=== PATIENT | male | born 1955 | race Caucasian/White ===

== ENCOUNTER 2018-02-16 10:53 | Inpatient (IN) | payer OTHER ==
[~2018-02-16] VITALS: Ht 185.4 cm; Wt 111.3 kg
[2018-02-16 11:04] VITALS: BP 142/71
[2018-02-16] MEDS ORDERED: ASPIR 8181 MG PO (11:06)
[2018-02-16 11:40] LABS: HEMATOCRIT 44.3 % (42.0-52.0); HEMOGLOBIN 14.9 gm/dL (14.0-18.0); MCH 32.4 pg (26.0-34.0); MCHC 33.6 g/dL (28.0-37.0); MCV 96.2 fL (80.0-100.0); MPV 7.7 fl. (7.2-11.1); NUCLEATED RBCS 0 /100WBC; PLATELET COUNT* 329 thou/uL (150-400); RBC 4.61 mil/uL (4.50-6.00); RDW-CV 13.4 % (10.5-14.5); WBC 15.8 thou/uL (4.0-11.0)
[2018-02-16 11:47] LABS: INR 1.1; PROTIME 11.1 Seconds (9.20-11.50)
[2018-02-16 11:48] LABS: ANION GAP 10 mmol/L (7-16); BUN 19 mg/dL (7-18); CALCIUM 8.6 mg/dL (8.5-10.1); CHLORIDE 90 mmol/L (98-107); CO2 27 mmol/L (21-32); CREATININE 1.2 mg/dL (0.6-1.3); GLUCOSE 169 mg/dL (70-99); POTASSIUM 3.4 mmol/L (3.5-5.1); SODIUM 127 mmol/L (136-145)
[2018-02-16 11:58] LABS: ALBUMIN 2.4 g/dL (3.4-5.0); ALKALINE PHOSPHATASE 83 U/L (46-116); LIPASE 82 U/L (73-393); MAGNESIUM 2.4 mg/dL (1.8-2.4); NT-PRO BRAIN NAT PEPTIDE 1166 pg/mL (<300); SGOT 28 U/L (15-37); SGPT 20 U/L (30-65); TOTAL BILIRUBIN 1.3 mg/dL (<0.1-1.0); TOTAL PROTEIN 7.5 g/dL (6.4-8.2); TROPONIN-I LEVEL <0.06 ng/mL (<0.06)
[2018-02-16 12:17] LABS: ABSOLUTE LYMPHOCYTES 0.5 thou/uL (0.8-5.3); ABSOLUTE MONOCYTES 1.7 thou/uL (0.0-1.2); ABSOLUTE NEUTROPHILS 13.6 thou/uL (1.6-8.1); ANISOCYTOSIS 1+; PLATELET ESTIMATE ADEQUATE; POIKILOCYTOSIS 1+
[2018-02-16 12:48] LABS: ESR (SEDRATE) 90 mm/hr (0-20)
[2018-02-16 13:00] VITALS: BP 96/50
[2018-02-16 13:40] LABS: URINE BILIRUBIN NEGATIVE (Negative); URINE BLOOD TRACE (Negative); URINE CLARITY CLEAR; URINE COLOR YELLOW; URINE GLUCOSE-RANDOM NEGATIVE (Negative); URINE KETONES TRACE (Negative); URINE LEUKOCYTES-REFLEX NEGATIVE (Negative); URINE NITRITE-REFLEX NEGATIVE (Negative); URINE PROTEIN 1+ (Negative); URINE UROBILINOGEN 0.2 E.U./dl (0.2-1.0)
[2018-02-16 13:46] LABS: AMP/METHAMP Negative (Negative); BARBITURATES Negative (Negative); BENZODIAZEPINES Negative (Negative); COCAINE Negative (Negative); METHADONE Negative (Negative); OPIATES POSITIVE (Negative); PCP Negative (Negative); THC Negative (Negative)
[2018-02-16 14:30] VITALS: BP 132/92
[2018-02-16 16:00] VITALS: BP 121/72
--- NOTE | 2018-02-16 18:15 | EKG ---
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: Marsha VELAZQUEZ : 1955 Requested By: Woody Moore Order Number: [id number] MD: Shane Billy Measurements Intervals Heaters Rate: 119 P: [place]: QRS: -59 QRSD: 119 T: 72 QT: 330 QTc: 465 Interpretive Statements Atrial fibrillation Left anterior fascicular block Left ventricular hypertrophy Anterior infarct, acute (LAD) ST elevation, consider inferior injury No previous ECG available for comparison Electronically Signed On 02-16-2018 18:14:25 CDT by Shane Billy [email or web address] <ELECTRONICALLY SIGNED> By: Shane Billy MD, FACC 02/16/18 1814 1104 1104 Shane Billy MD, FACC /EPI
--- NOTE | 2018-02-16 19:01 | NUR ---
PATIENT RESTING IN BED. UP AD SHANI. VITAL SIGNS STABLE AND PATINET IN NOAPPARENT DISTRESS. A FIB AND ON CARDIZEM GTT. HOURLY ROUNDING COMPLETED FOR PATIENT SAFETY.
[2018-02-16 20:00] VITALS: BP 124/73
[2018-02-17] VITALS: BP 130/74
[2018-02-17 04:00] VITALS: BP 128/66
--- NOTE | 2018-02-17 06:10 | NUR ---
ASSUMED PATIENT CARE AT 1900. PATIENT ALERT AND ORIENTED TIMES FOUR. COMPLAINTS OF SOME SHORTNESS OF AIR. LOTS OF EDUCATION COMPLETED. CARDIZEM DRIP INFUSING AT A RATE OF 15U/HR. REMAINS IN AFIB AT THIS TIME. ALERT AND ORIENTED TIMES FOUR. GRAM POSITIVE COCCI REPORTED IN THE BLOOD CULTURES. REPORTED TO MD AND NEW ORDERS RECEIVED. NEW IV ALSO STARTED AT THIS TIME. PATIENT USES URINAL AT THIS TIME HE FEELS WEAK WHEN STANDING. 2 IV'S PATENT. INSPECTOR PACKER AND HOURLY ROUNDING COMPLETED CHARTED
[2018-02-17 07:30] VITALS: BP 128/65
[2018-02-17 12:00] VITALS: BP 126/70
[2018-02-17 12:54] LABS: URIC ACID* 2.9 mg/dL (2.6-7.2)
[2018-02-17 14:00] VITALS: BP 119/64
--- NOTE | 2018-02-17 14:05 | NUR ---
I HAVE REVIEWED THE REASSESSMENT AND DOCUMENTATION BY STUDENT NURSE CARMEN RAMAN AND AGREE
--- NOTE | 2018-02-17 16:01 | NUR ---
MET WITH PT TO DISCUSS HOME SITUATION/DC PLANNING. 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 USES NO EQUIPMENT. TALKED ABOUT POC. PT HOPES TO GET MEDS TO CONTROL HIS AFIB AND GET BACK TO WORK. WILL FOLLOW
--- NOTE | 2018-02-17 17:33 | NUR ---
PATIENT UP ON SIDE OF BED EATING CO PAIN IN BACK AND CONSTIPATION WITH PAINKILLERS. WILL FOLLOW UP.
--- NOTE | 2018-02-17 17:58 | 2DMMODE ---
[place] [address] 2 D/M-MODE ECHOCARDIOGRAM Name: DEVON CALDERA Room: [address] IN [facility]#: [id number] Admission: 02/16/18 Attend Phys: Chico Lauren Discharge: Date of : 53 Date of Service: 02/17/18 1757 Report #: [id number] THIS REPORT FOR: //name// APPROVED REPORT Study performed: 02/17/2018 11:01:11 EXAM: Comprehensive 2D, Doppler, and color-flow Echocardiogram Patient Location: In-Patient Room #: [facility] Status: routine BSA: 2.37 HR: 93 bpm BP: 128/65 mmHg Rhythm: NSR Other Information Study Quality: Good Indications Atrial Fibrillation 2D Dimensions IVSd: 9.53 (7-11mm) LVOT Diam: 23.96 (18-24mm) LVDd: 63.03 mm PWd: 9.87 (7-11mm) Ascending Ao: 38.81 (22-36mm) LVDs: 39.48 (25-40mm) Aortic Root: 39.05 mm Volumes Left Atrial Volume (Systole) LA ESV Index: 47.60 mL/m2 Aortic Valve AoV Peak Paolo.: 1.52 m/s AO Peak Gr.: 9.29 mmHg LVOT Max P.82 mmHg AO Mean Gr.: 5.49 mmHg LVOT Mean P.23 mmHg LVOT Max V: 0.98 m/s AO V2 VTI: 23.35 cm LVOT Mean V: 0.70 m/s ABE (VTI): 2.90 cm2 LVOT V1 VTI: 15.03 cm Mitral Valve MV Decel. Time: 147.96 ms MV PHT: 42.91 ms MVA (PHT): 5.13 [place]2 [place] [address] 2 D/M-MODE ECHOCARDIOGRAM Name: DEVON CALDERA Room: [address] IN [facility].#: [id number] Admission: 02/16/18 Attend Phys: Chico Lauren Discharge: Date of : 53 Date of Service: 02/17/18 1757 Report #: [id number] TDI Medial E' Paolo.: 0.14 m/s Lateral E' Paolo.: 0.15 m/s Pulmonary Valve PV Peak Paolo.: 0.91 m/s PV Peak Gr.: 3.34 mmHg Tricuspid Valve RAP Estimate: 5.00 mmHg TR Peak Gr.: 22.60 mmHg RVSP: 27.00 mmHg PA Pressure: 27.00 mmHg Left Ventricle The left ventricle is normal size. There is normal LV segmental wall motion. There is normal left ventricular wall thickness. Left ventricular systolic function is mildly decreased. LVEF is 45%. This study is not technically sufficient to allow evaluation of the LV diastolic function due to atrial fibrillation. Right Ventricle The right ventricle is normal size. The right ventricular systolic function is normal. Atria Left atrium is moderately dilated. The right atrium size is normal. Aortic Valve The aortic valve is normal in structure. Trace aortic regurgitation. There is no aortic valvular stenosis. Mitral Valve The mitral valve is normal in structure. Mild mitral regurgitation. No evidence of mitral valve stenosis. Tricuspid Valve The tricuspid valve is normal in structure. Trace tricuspid regurgitation. No pulmonary hypertension. Pulmonic Valve The pulmonary valve is normal in structure. Trace pulmonic regurgitation. Great Vessels The aortic root is normal in size. IVC [place] [address] 2 D/M-MODE ECHOCARDIOGRAM Name: DEVON CALDERA Room: [address] IN [facility]#: [id number] Admission: 02/16/18 Attend Phys: Chico Lauren Discharge: Date of : 53 Date of Service: 02/17/18 1757 Report #: [id number] collapses >50% with inspiration. Pericardium There is no pericardial effusion. <Conclusion> The left ventricle is normal size. There is normal left ventricular wall thickness. Left ventricular systolic function is mildly decreased. LVEF is 45%. This study is not technically sufficient to allow evaluation of the LV diastolic function due to atrial fibrillation. The right ventricle is normal size. Left atrium is moderately dilated. The aortic valve is normal in structure. The mitral valve is normal in structure. Mild mitral regurgitation. The tricuspid valve is normal in structure. IVC is normal in size and collapses >50% with inspiration. There is normal LV segmental wall motion. <ELECTRONICALLY SIGNED> By: Jorge Da Silva MD, [facility] 02/17/181756 56 56 Jorge Da Silva MD, FACC /INF
[2018-02-17 19:05] VITALS: BP 153/69
--- NOTE | 2018-02-17 22:25 | NUR ---
PT ASSESSMENT COMPLETE. PT RUNNING LOW GRADE FEVER. TYLENOL GIVEN WITH GOOD RESULTS. PT IS ALERT & ORIENTED WITH SOME MINIMAL INTERMITTEN CONFUSION. PT IS COMPLIANT WITH FALL PRECAUTIONS. TRACING AFIB ON MONITOR. BED ALARM ON, CLWR. PT DENIES ANY FURTHER NEEDS AT THIS TIME.
[2018-02-18] VITALS: BP 117/69
[2018-02-18 04:00] VITALS: BP 120/82
--- NOTE | 2018-02-18 06:18 | NUR ---
PT HAS SLEPT WELL. IV ABT GIVEN ORDERED. PT DENIES PAIN, N/V/D. NO NEW CONCERNS AT THIS TIME. CLWR.
[2018-02-18 08:00] VITALS: BP 156/82
[2018-02-18 09:49] LABS: ABSOLUTE BASOPHILS 0.1 thou/uL (0.0-0.2); ABSOLUTE LYMPHOCYTES 0.7 thou/uL (0.8-5.3); ABSOLUTE MONOCYTES 0.9 thou/uL (0.0-1.2); ABSOLUTE NEUTROPHILS 10.8 thou/uL (1.6-8.1); BASOPHILS 0.5 %; EOSINOPHILS 0.4 %; HEMATOCRIT 36.5 % (42.0-52.0); LYMPHOCYTES 5.2 %; MCH 31.6 pg (26.0-34.0); MCHC 33.3 g/dL (28.0-37.0); MCV 94.8 fL (80.0-100.0); MONOCYTES 7.2 %; MPV 7.3 fl. (7.2-11.1); NUCLEATED RBCS 0 /100WBC; PLATELET COUNT* 364 thou/uL (150-400); POLYS 86.7 %; RBC 3.85 mil/uL (4.50-6.00); RDW-CV 13.3 % (10.5-14.5); WBC 12.5 thou/uL (4.0-11.0)
[2018-02-18 09:51] LABS: HEMOGLOBIN 12.1 gm/dL (14.0-18.0)
[2018-02-18 10:07] LABS: ALBUMIN 1.6 g/dL (3.4-5.0); CALCIUM 7.8 mg/dL (8.5-10.1); CREATININE 0.7 mg/dL (0.6-1.3); POTASSIUM 3.5 mmol/L (3.5-5.1); TOTAL BILIRUBIN 0.6 mg/dL (<0.1-1.0)
--- NOTE | 2018-02-18 10:19 | CON ---
[address] [address] CONSULTATION Name: DEVON CALDERA Room: [address] IN M.R.#: [id number] Admission: 02/16/18 Attend Phys: Kumar Guzman Discharge: Date of : 53 Report #: [id number] THIS REPORT FOR: //name// CC: Chico Toney DATE OF SERVICE: 02/17/2018 REASON FOR CONSULTATION: Apical mass. DISCUSSION: The patient is a 62-year-old man who has no prior history of known cardiopulmonary disease. He has not felt well for some time. He developed left shoulder pain. It was gradually getting worse. He did not have any injury to this area. Was then getting so bad, he had trouble trying to sleep, was unable to work. He was essentially immobile at home because of it. Was also having some pain in his lower back area as well. Seen by Dr. Toney. He had developed some discomfort in his lower extremities. When he saw Dr. Toney, was noted to have mottling of his legs. Because of that, he was sent to the Emergency Department yesterday. He was at that time not having as much pain in his left shoulder. Had tremendous pain in his lower back area. He had scans done to rule out a dissection and PE. In the left apical area, he does have a mass seen in the left apex. It is adjacent to the upper left mediastinum and adjacent to the esophagus. Does not appear to invade any of the bones or other structures. The lungs themselves look normal with some calcified granulomas noted on the left side. He was febrile overnight. He had blood cultures drawn yesterday evening. Two out of two are now positive for gram-positive cocci with ID pending. He was started on antibiotics in the form of vancomycin and Zosyn. He is a remote smoker, quitting 25 years ago. He primarily just smoked some cigars, occasional cigarettes. He does have some secondhand smoke exposure in that his continues to smoke, though she typically goes outside or into the garage. He denies having any nausea or vomiting. He has had so much pain over the last week, it has affected his appetite. He has not had any hemoptysis, blood in his stools. Typically, he has not been short of breath. He has not had any dental work done in the last several months. Denies any syncopal episodes. He has not been aware of any palpitations or tachycardia. He believes he has lost some weight over the last week as he has not been eating. He did not believe he had any fevers at home. However, retrospectively, he has had some sweats. Denies any drug use or IV drug use. PAST MEDICAL HISTORY: Otherwise, fairly unremarkable. PAST SURGICAL HISTORY: He has had surgery on [place] [address] CONSULTATION Name: DEVON CALDERA Room: [address] IN [facility]#: [id number] Admission: 02/16/18 Attend Phys: Kumar Guzman Discharge: Date of : 53 Report #: [id number] SOCIAL HISTORY: He is . Former smoker as noted. 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 FAMILY HISTORY: Negative for lung disease. REVIEW OF SYSTEMS: A 12-point ROS was done. Note positives above. He has noted the mottling of his lower extremities. Sensation is changed. He has not had any falls. He has had now terrific amount of pain in his lower back area with left shoulder area is better. Has difficulty moving because of the pain. Otherwise, see HPI. PHYSICAL EXAMINATION: GENERAL: The patient is seen resting in bed. He is alert, cooperative. Looks comfortable at rest. HEENT: Head is normocephalic. Sclerae nonicteric. Mucous membranes moist. NECK: Negative for adenopathy. No supraclavicular adenopathy is noted. HEART: Irregularly irregular. No S3 is heard. LUNGS: Sounds are clear. He had a lot of difficulty turning given his complaints of low back pain. Nursing staff did assist with that. His trunk does appear mildly diaphoretic. ABDOMEN: Obese, soft, without appreciable hepatosplenomegaly. There is no guarding or rebound tenderness. LOWER EXTREMITIES: He does not have any edema. They are cooler. Does have some mild mottling over his knees. Pulses are present. NEUROLOGIC: He is alert and oriented x 3. LABORATORY AND X-RAY FINDINGS: As noted above, 2/2 blood cultures are positive for gram-positive cocci. Sodium is 127, potassium 3.4, BUN 19, creatinine 1.2. Transaminases were normal. Total bilirubin was 1.3. Lactic acid 1.4. Drug screen was positive for opiates. White blood cell count 15,800, hemoglobin 14.9, hematocrit 44.3, platelets 329,000. Sed rate is 90. CRP was 362. Prealbumin 6.8. Portable chest film done yesterday was fairly unremarkable. Retrospectively, maybe fullness left apex adjacent to the mediastinum. The CT dissection study done of his chest, abdomen and pelvis was reviewed. Also, we reviewed them with the radiologist. He has left apical pleural based mass. It is adjacent to the left upper mediastinum. Measurements as per report 3.7 x 2.8 x 4.6. The margins are fairly well circumscribed. Does not appear to invade any of the surrounding osseous structures. He has no dissection. No other worrisome findings are noted. IMPRESSION: 1. Left apical mass. Exact etiology not clear. Unknown if this was contributor to the severe shoulder pain that he had been experiencing. 2. Bacteremia. He is 2/2 positive for gram-positive cocci[place] [address] CONSULTATION Name: DEVON CALDERA Room: [address] IN [facility].#: [id number] Admission: 02/16/18 Attend Phys: Kumar Guzman Discharge: Date of : 53 Report #: [id number] this could be Staphylococcus aureus. The exact source of this is not clear. 3. New onset atrial fibrillation. Exact duration of the atrial fibrillation is not clear. He has not been aware of tachycardia or palpitations. 4. Markedly elevated CRP and sed rate. 5. Mild leukocytosis. RECOMMENDATIONS: 1. We will ask ID to see. 2. Continue antibiotics. Vancomycin has already been started. Adjust as per cultures. 3. Control ventricular rate. 4. Needs echocardiogram done as well to check for vegetations. 5. We will discuss further. At some point, a biopsy could be obtained of this lesion in his left upper lung with IR assistance. <ELECTRONICALLY SIGNED> By: Awa Pennington MD 02/18/18 1019 0944 [id number] Blanc MD /nt
--- NOTE | 2018-02-18 11:00 | NUR ---
PT ALERT, ORIENTED AND ALL VSS ON ROOM AIR. DENIES SOA, CP. PT DOES HAVE MCMULLEN. C/O LOW BACK PAIN WITH SOME MOVEMENT. EDUCATED ON SAFETY AND PLAN OF CARE. CALL LIGHT IN REACH. PLEASE SEE ASSESSMENT FOR ADDITIONAL INFORMATION. WILL CONTINUE TO MONITOR
[2018-02-18 11:58] VITALS: BP 143/76
--- NOTE | 2018-02-18 12:55 | CON ---
[address] [address] CONSULTATION Name: DEVON CALDERA Room: [address] IN M.R.#: [id number] Admission: 02/16/18 Attend Phys: Kumar Guzman Discharge: Date of : 53 Report #: [id number] THIS REPORT FOR: //name// CC: Chico Toney DATE OF SERVICE: 02/17/2018 INFECTIOUS DISEASE CONSULTATION ATTENDING PHYSICIAN: Chico Lauren M.D. REASON FOR EVALUATION: Gram-positive septicemia. HISTORY OF PRESENT ILLNESS: Chart reviewed, the patient examined. This is a 62-year-old who had a fairly brief illness, became unsettled, had some difficulty with progressive back pain limiting his mobility and also had some anorexia, bilateral upper extremities sensory changes, blurry vision and headache with cold sweats. Denied any antecedent injury. Per the evaluation, blood cultures were collected, now 2 out of 2 with gram-positive cocci. Denies any significant pulmonary or gastrointestinal-related complaints. Chest x-ray was noted on admission to be unremarkable. Lactic acid was 1.4. CRP was elevated at 361. He did have the chest discomfort and underwent a chest CT, which excluded evidence of dissection, however, did note a soft tissue density mass. Urinalysis was unremarkable. He was empirically started on Zosyn and vancomycin. At this point, he states he feels significantly better than admission. ALLERGIES: None. CURRENT MEDICATIONS: Medicines include vancomycin and Zosyn. PAST MEDICAL HISTORY: Otherwise, unremarkable. He has had some foot surgeries. SOCIAL HISTORY: Nonsmoker. Fairly regular ethanol. FAMILY HISTORY: Noncontributory. REVIEW OF SYSTEMS: As above. PHYSICAL EXAMINATION: GENERAL: He is pleasant, alert, cooperative. He is in mild distress. He appears to be generally well nourished. VITAL SIGNS: Temperature max in the last 24 hours, 100.1; more recently 98.5. Pulse 80, respirations 14 and blood pressure 126/45. SKIN: Warm, [place] [address] CONSULTATION Name: DEVON CALDERA Room: [address]#: [id number] Admission: 02/16/18 Attend Phys: Kumar Guzman Discharge: Date of : 53 Report #: [id number] HEENT: Otherwise unremarkable. NECK: Supple. LUNGS: Generally clear. HEART: Regular. I do not appreciate a murmur. ABDOMEN: Soft, nontender and nondistended. EXTREMITIES: No cyanosis. GENITOURINARY: Deferred. RECTAL: Deferred. LABORATORY DATA: Electrolytes: Sodium 127, potassium 3.4, chloride 90, bicarbonate is 27, anion gap of 10, BUN and creatinine 19 and 1.2 and glucose of 169. LFTs unremarkable, with the exception total bilirubin of 1.3. Albumin of 2.4. Total protein 7.5. Estimated GFR of 61. CBC: White count of 15.8, H and H 14.9 and 44.3 and platelets of 329,000. He did have a monocytosis. Urinalysis unremarkable. Two out of 2 blood cultures with gram-positive cocci, awaiting ID. ASSESSMENT AND PLAN: Gram-positive septicemia. The patient without significant medical history. I assume that 2 out of 2 would represent a true infection. We will continue empiric antimicrobial therapy, awaiting their ID. He is actually significantly improved since admission subjectively. We will go ahead and do an echo. He did have significant back pain and we will see how that plays. I will repeat blood cultures to assure sterility of the blood stream. <ELECTRONICALLY SIGNED> By: Nba Garcia MD 02/18/18 1255 1525 [id number] Garcia MD /nt
[2018-02-18 16:00] VITALS: BP 114/62
--- NOTE | 2018-02-18 17:09 | NUR ---
PT STATES HE IS FEELING OVERALL IMPROVED FROM THIS MORNING. TMAX THIS SHIFT 100.8- MEDICATED PER EMAR. ASSESSMENT REMAINS UNCHANGED. WILL CONTINUE TO MONITOR
[2018-02-18 19:45] VITALS: BP 130/85
[2018-02-19] VITALS: BP 148/70
--- NOTE | 2018-02-19 02:02 | NUR ---
PT CARE ASSUMED AT 1930. ALERT AND ORIENTED X4. SAT MAINTAINED IN RA. AFIB RUNNING ON TELE MONITOR. CALL LIGHT WITHIN REACH AND FALL PRECAUTIOINS MAINTAINED. PT'S MRI RESULTS STATED SURGICAL EMERGENCY, NOTIFIED, WILL BE TRANSFERRED TO THE OTHER HOSPITAL FOR SURGERY. SPOUSE EXPLAINED ABOUT THE SITUATION ON THE PHONE. NPO. PT RUNNING ON LOW GRADE FEVER, TYLENOL GIVEN PER EMAR. DENIES SOB AND PAIN AT THE MOMENT. WILL CONTINUE TO MONITOR.
[2018-02-19 04:00] VITALS: BP 137/84
[2018-02-19 05:20] LABS: HEMATOCRIT 36.5 % (42.0-52.0); HEMOGLOBIN 12.3 gm/dL (14.0-18.0); MCH 32.3 pg (26.0-34.0); MCHC 33.8 g/dL (28.0-37.0); MCV 95.8 fL (80.0-100.0); MPV 7.5 fl. (7.2-11.1); NUCLEATED RBCS 0 /100WBC; PLATELET COUNT* 394 thou/uL (150-400); RBC 3.82 mil/uL (4.50-6.00); RDW-CV 13.1 % (10.5-14.5); WBC 10.4 thou/uL (4.0-11.0)
[2018-02-19 05:40] LABS: ALBUMIN 1.5 g/dL (3.4-5.0); CALCIUM 7.8 mg/dL (8.5-10.1); CREATININE 0.7 mg/dL (0.6-1.3); POTASSIUM 3.3 mmol/L (3.5-5.1); TOTAL BILIRUBIN 0.7 mg/dL (<0.1-1.0); TOTAL PROTEIN 5.9 g/dL (6.4-8.2)
--- NOTE | 2018-02-19 06:10 | NUR ---
PT ALERT AND ORIENTED X4. SAT MAINTAINED IN RA. PT TO BE TRANSFERED TO OTHER HEALTH CARE FACILITY FOR SURGERY. IV LINE REMOVED CLOTTED OFF, NEW 20G IV LINE INESERTED. DENIES ANY PAIN AND SOB. TRACING AFIB ON THE MONITOR. WILL CONTINUE TO MONITOR.
[2018-02-19 06:26] LABS: ABSOLUTE LYMPHOCYTES 0.4 thou/uL (0.8-5.3); ABSOLUTE MONOCYTES 0.5 thou/uL (0.0-1.2); ABSOLUTE NEUTROPHILS 9.5 thou/uL (1.6-8.1); ANISOCYTOSIS 1+; PLATELET ESTIMATE ADEQUATE; POIKILOCYTOSIS 1+
--- NOTE | 2018-02-19 07:15 | NUR ---
CHANGE OF SHIFT, BEDSIDE REPORT GIVEN PATIENT SEEN AT BEDSIDE, IN BED ASLEEP ASSUMED PATIENT CARE
[2018-02-19 08:00] VITALS: BP 162/72
--- NOTE | 2018-02-19 09:05 | NUR ---
JACKAROO SPOKE TO [facility] WITH [facility] TRANSFER AND SHE INFORMS THAT THE TRANSFER FOR THE PATIENT HAD BEEN INITIATED LAST NIGHT AT 2100 AND RECORDS HAD ALREADY BEEN SENT. [facility] INFORMS THAT [facility] TRANSFER TEAM WILL CONNECT THE PHYSICIANS AND ONCE TRANSFER HAS BEEN APPROVED SHE WILL RETURN CALL WITH BED ASSIGNMENT. CM WILL REMAIN AVIALABLE TO ASSIST AND FOLLOW NEEDED.
[2018-02-19 11:41] VITALS: BP 140/86
--- NOTE | 2018-02-19 12:11 | NUR ---
[employer] LIAISON INFORMED BY SYSTEM DEVELOPMENT ENGINEER THAT [facility] RETURNED CALL AND INFORMS THAT THE FACILITY 'DOES NOT HAVE BED AVAILABILITY RIGHT NOW, BUT MAY HAVE A BED AVAILABLE LATER ON TODAY'. D/C ACTIVITIES AIDE INFORMED BY DR PRINCE THAT TRANSFER IS URGENT AND TO INITIATE TRANSFER WITH [facility]. D/C ACTIVITIES AIDE SPOKE TO HAO WITH TRANSFER TEAM TO INFORM OF THE NEED TO INITIATE TRANSFER. REASON: SPINE/NEURO EVAL AND SURGERY, BED: TELE, PHYSICAN REQUESTING TRANSFER: DR PRINCE. CM WILL REMAIN AVIALABLE TO ASSIST AND FOLLOW NEEDED.
--- NOTE | 2018-02-19 14:00 | NUR ---
TRANSFER TO VIA AMBULANCE REPORT GIVEN TO NURSE DIANE JASMIN NOTIFIED PATIENT LEFT GOOD CONDITION AND PERSONAL BELONGINGS SENT
--- NOTE | 2018-02-19 17:13 | CARDNUC ---
[place] [address] CARDIAC NUCLEAR IMAGING REPORT Name: DEVON CALDERA Room: [address]#: [id number] Admission: 02/16/18 Attend Phys: Chico Lauren Discharge: 02/19/18 Date of : 53 Date of Service: 02/19/18 1713 Report #: [id number] THIS REPORT FOR: //name// APPROVED REPORT Study performed: 02/18/2018 09:25:00 Indication: Atrial Fibrillation, Dyspnea Patient Location: In-Patient Room #: 218 Stress Tech: Arleth Young Stress Nurse: Laxmi Agustin RN Ht: 6 ft 3 in Wt: 249 lbs BSA: 2.41 m2 BMI: 31.11 Medical History Medical History: lung mass, a fib with rvr Medications: apixaban, diltiazem Allergies: nkda Cardiac Risk Factors: age Previous Cardiac Procedures: none Exercise History: Physically active Resting Data Rest SPECT myocardial perfusion imaging was performed in position minutes following the intravenous injection of mCi of Tc-99m Sestamibi. Pharmacologic Stress Pharmacologic stress test was performed by injecting Regadenoson 0.4 mg IV push over 10-15 seconds immediately followed by the intravenous injection of 41.0 mCi of Tc-99m Sestamibi. Time of stress injection: 14:35 Date: 02/18/2018 Administration Route: IV Administration Site: Right Hand Heart Rate at time of stress injection: 116 bpm. Gated Stress SPECT was performed 40 minutes after stress injection. The images were gated to evaluate regional wall motion and calculate left ventricular ejection fraction. Stress Test Details Stress Test: Pharmacologic stress testing performed using 0.4 mg of regadenoson per 5 mL given IV over 10 [place] [address] CARDIAC NUCLEAR IMAGING REPORT Name: DEVON CALDERA Room: [address]#: [id number] Admission: 02/16/18 Attend Phys: Chico Lauren Discharge: 02/19/18 Date of : 53 Date of Service: 02/19/18 1713 Report #: [id number] Reason for pharmacologic stress test: physical limitation. HR Max Heart Rate (APMHR): 157 bpm Resting HR: 93 bpm Target HR (85% APMHR): 133 bpm Max HR Achieved: 116 bpm % of APMHR: 73 Recovery HR: 103 bpm BP Resting BP: 128/71 mmHg Recovery BP: 153/63 mmHg ECG Resting ECG: atrial fibrillation with incomplete left bundle-branch block Stress ECG: atrial fibrillation with incomplete left bundle-branch block ST Change: none Arrhythmia: none Recovery ECG: atrial fibrillation with incomplete left bundle branch block Recovery ST Change: none Recovery Arrhythmia: none Clinical Reason for Termination: Completed protocol Exercise duration: 0 min sec Exercise capacity: 1 METs The patient tolerated Lexiscan infusion without significant symptoms. Nurse Comments pt unable to walk on treadmill dt generalized weakness.pt unable to stand without assistance Stress ECG Conclusion The baseline 12-lead EKG shows atrial fibrillation with an incomplete left bundle branch block. EKGs obtained during and post Lexiscan infusion show atrial fibrillation with no significant Mr. T wave changes when compared to baseline. There were no significant stress-induced arrhythmias. Study Quality Study: Good Artifact: Moderate [place] [address] CARDIAC NUCLEAR IMAGING REPORT Name: DEVON CALDERA Room: [address] IN [facility]#: [id number] Admission: 02/16/18 Attend Phys: Chico Lauren Discharge: 02/19/18 Date of : 53 Date of Service: 02/19/18 1713 Report #: [id number] Study Data Post stress, the left ventricular ejection was 48%.. Perfusion Perfusion images obtained post Lexiscan stress show a large in size intensity inferior wall defect. Prone imaging was not obtained. Resting images were not obtained. His defect likely represents diaphragmatic attenuation artifact although there are no resting images for comparison. Wall Motion Gated images suggest possible mild inferior wall hypokinesis. Global LV systolic function appears mildly decreased. Nuclear Conclusion ECG Findings: negative for ischemia Clinical Findings: negative for ischemia Nuclear Findings: incomplete Exercise Capacity: not assessed Left Ventricular Function: abnormal Resting images were not obtained. Stress images show an inferior wall defect that may be diaphragmatic attenuation artifact versus prior infarct. No conclusions can be drawn from this study. <Conclusion> The baseline 12-lead EKG shows atrial fibrillation with an incomplete left bundle branch block. EKGs obtained during and post Lexiscan infusion show atrial fibrillation with no significant Mr. T wave changes when compared to baseline. There were no significant stress-induced arrhythmias. <ELECTRONICALLY SIGNED> By: Shane Billy MD, FACC 02/19/18 171 12 12 Shane Billy MD, FACC /INF
== END 2018-02-19 14:30 | disposition short-term general hospital (02) | DRG 871 ==
LOC: M.ERS 10:53 → M.TBA-ER 13:26 → M.2W 13:26
PROVIDERS: Emergency Medicine; Internal Medicine; ADMIT Internal Medicine
DX: A41.01 Sepsis due to Methicillin susceptible Staphylococcus aureus (principal); J96.01 Acute respiratory failure with hypoxia; J98.59 Other diseases of mediastinum, not elsewhere classified; G06.1 Intraspinal abscess and granuloma; I33.0 Acute and subacute infective endocarditis; I42.9 Cardiomyopathy, unspecified; I48.91 Unspecified atrial fibrillation; B95.61 Methicillin susceptible Staphylococcus aureus infection as the cause of diseases classified elsewhere; D72.829 Elevated white blood cell count, unspecified; E80.6 Other disorders of bilirubin metabolism; Z87.891 Personal history of nicotine dependence; Z79.82 Long term (current) use of aspirin; Z79.899 Other long term (current) drug therapy

== ENCOUNTER 2018-09-27 10:00 | Inpatient (IN) | payer OTHER ==
[~2018-09-27] VITALS: Ht 190.5 cm; Wt 113.4 kg
[~2018-09-27 10:00] MED LIST: ASPIR 8181 MG PO
[2018-09-27 11:44] VITALS: BP 152/74
[2018-09-27] MEDS ORDERED: ELIQUIS5 MG PO (12:07)
[2018-09-27] MEDS ORDERED: CARDIZEM CD240 MG PO (12:07)
[2018-09-27] MEDS ORDERED: DOXYCYCLINE 10100 MG PO (12:08)
[2018-09-27] MEDS ORDERED: LOPRESSOR50 PO (12:08)
[2018-09-27 16:00] VITALS: BP 137/88
[2018-09-27 20:00] VITALS: BP 131/81
[2018-09-28] VITALS (8 sets, daily range): BP systolic 112–153; BP diastolic 63–88
[2018-09-28 13:20] LABS: HEMATOCRIT 47.9 % (42.0-52.0); HEMOGLOBIN 16.3 gm/dL (14.0-18.0); MCH 32.7 pg (26.0-34.0); MCV 96.3 fL (80.0-100.0); MPV 7.8 fl. (7.2-11.1); RBC 4.97 mil/uL (4.50-6.00); RDW-CV 14.5 % (10.5-14.5); WBC 4.3 thou/uL (4.0-11.0)
[2018-09-28 13:35] LABS: ALBUMIN 3.7 g/dL (3.4-5.0); ALKALINE PHOSPHATASE 68 U/L (46-116); ANION GAP 11 mmol/L (7-16); BUN 15 mg/dL (7-18); CALCIUM 9.3 mg/dL (8.5-10.1); CHLORIDE 105 mmol/L (98-107); CHOLESTEROL 226 mg/dL (<200); CO2 24 mmol/L (21-32); CREATININE 1.1 mg/dL (0.6-1.3); GLUCOSE 116 mg/dL (70-99); HDL CHOLESTEROL 53 mg/dL (>40); LDL CHOLESTEROL 124 mg/dL (<100); POTASSIUM 4.7 mmol/L (3.5-5.1); SGOT 14 U/L (15-37); SGPT 16 U/L (30-65); SODIUM 140 mmol/L (136-145); TC:HDL 4.3 Ratio (Not establshd); TOTAL BILIRUBIN 0.8 mg/dL (<0.1-1.0); TOTAL PROTEIN 7.3 g/dL (6.4-8.2); TRIGLYCERIDE 245 mg/dL (<150); VLDL 49 mg/dL (<40)
[2018-09-28 14:01] LABS: SERUM ASSESSMENT Clear
--- NOTE | 2018-09-28 15:43 | EKG ---
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: [facility] : 1955 Requested By: Jorge Da Silva Order Number: [id number] Jn MD: Shane Billy Measurements Intervals [place] Rate: 56 P: CT: QRS: -61 QRSD: 138 T: -47 QT: 488 QTc: 472 Interpretive Statements Atrial flutter with predominant 4:1 AV block RBBB and LAFB Probable left ventricular hypertrophy Inferior infarct, recent Compared to ECG 02/16/2018 11:04:56 AV block, advanced (high-grade) now present Right bundle-branch block now present Atrial fibrillation no longer present ST (T wave) deviation no longer present Myocardial infarct finding still present Electronically Signed On 09-28-2018 15:42:51 CDT by Shane Billy [email or web address] <ELECTRONICALLY SIGNED> By: Shane Billy MD, [facility] 09/28/18 1542 4 033 Shane Billy MD, [facility] /EPI
[2018-09-28 16:49] LABS: APTT 28.1 Seconds (25.0-31.3); PROTIME 10.3 Seconds (9.20-11.50)
[2018-09-29] VITALS (13 sets, daily range): BP systolic 16–160; BP diastolic 69–92
--- NOTE | 2018-09-29 10:35 | EKG ---
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1955 Requested By: Jorge Da Silva Order Number: [id number] Reading MD: Jorge Da Silva Measurements Intervals [place] Rate: 58 P: TN: QRS: -60 QRSD: 121 T: -23 QT: 482 QTc: 474 Interpretive Statements Atrial flutter with predominant 4:1 AV block Left bundle branch block Compared to ECG 09/28/2018 03:35:57 Left bundle-branch block now present Electronically Signed On 09-29-2018 10:35:47 CDT by Jorge Da Silva [email or web address] <ELECTRONICALLY SIGNED> By: Jorge Da Silva MD, [facility] 09/29/18 1035 0445 0445 Jorge Da Silva MD, [facility] /EPI
--- NOTE | 2018-09-29 10:37 | EKG ---
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1955 Requested By: Joreg Da Silva Order Number: [id number] Jn MD: Jorge Da Silva Measurements Intervals [place] Rate: 69 P: 41 UT: 215 QRS: -62 QRSD: 118 T: -25 QT: 443 QTc: 475 Interpretive Statements Sinus rhythm Borderline prolonged UT interval Left anterior fascicular block Probable left ventricular hypertrophy Borderline T abnormalities, inferior leads Compared to ECG 09/28/2018 03:35:57 T-wave abnormality now present Atrial flutter no longer present AV block, advanced (high-grade) no longer present Right bundle-branch block no longer present Myocardial infarct finding no longer present Electronically Signed On 09-29-2018 10:37:28 CDT by Jorge Da Silva [email or web address] <ELECTRONICALLY SIGNED> By: Jorge Da Silva MD, [facility] 09/29/18 1037 1027 1027 Jorge Da Silva MD, [facility] /EPI
[2018-09-30] VITALS: BP 123/68
[2018-09-30 04:00] VITALS: BP 144/78
[2018-09-30 08:00] VITALS: BP 157/83
[2018-09-30 09:43] VITALS: BP 142/75
[2018-09-30] MEDS ORDERED: SORINE 80 MG TA80 M1 PO (09:49)
--- NOTE | 2018-09-30 17:17 | EKG ---
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1955 Requested By: Jorge Da Silva Order Number: [id number] Reading MD: Shane Billy Measurements Intervals [place] Rate: 62 P: 49 PA: 229 QRS: -61 QRSD: 123 T: -23 QT: 439 QTc: 446 Interpretive Statements Sinus rhythm Prolonged PA interval Probable left atrial enlargement Intraventricular conduction delay Compared to ECG 09/29/2018 10:27:16 Left anterior fascicular block no longer present T-wave abnormality no longer present Electronically Signed On 09-30-2018 17:17:00 CDT by Shane Billy [email or web address] <ELECTRONICALLY SIGNED> By: Shane Billy MD, [facility] 09/30/18 1717 0853 0853 Shane Billy MD, [facility] /EPI
--- NOTE | 2018-10-01 11:05 | CARD ---
[address] [address] CARDIAC CATH REPORT Name: DEVON CALDERA Room: [address] IN M.R.#: [id number] Admission: 09/27/18 Attend Phys: Jorge Da Silva MD, Discharge: 09/30/18 Date of : 53 Report #: [id number] THIS REPORT FOR: //name// CC: Jorge Toney DATE OF SERVICE: 09/29/2018 PROCEDURE: DC cardioversion. TECHNIQUE: The patient was brought to the Cardiology suite. He demonstrated atrial flutter with a moderate ventricular response. He received 120 mg of sotalol and 5 mg of Eliquis p.o. this a.m. with sips of water. We achieved sedation with 4 mg of Versed and 25 mcg of Fentanyl intravenously. The patient then appropriately sedated. We proceeded with DC cardioversion administrating 200 joules or 200 watt seconds x 1 with the patches in the AP location with rhythm reverting from atrial flutter to a sinus mechanism at a rate of 74. He gradually awakened from the sedation. He demonstrated hemodynamic and rhythmic stability throughout the procedure. At the end demonstrated sinus rhythm at a rate of 75 with a blood pressure of 140/70. IMPRESSION: Successful DC cardioversion with rhythm reverting from atrial flutter to sinus mechanism utilizing 200 joules x 1. <ELECTRONICALLY SIGNED> By: Jorge Da Silva MD, [facility] 10/01/18 1105 0956 [id number] Da Silva MD, [facility] /nt
--- NOTE | 2018-10-01 11:07 | D ---
[facility] [address] [place] [address] DISCHARGE SUMMARY Name: DEVON CALDERA Room: [address] IN M.R.#: [id number] Admission: 09/27/18 Attend Phys: Jorge Da Silva MD, Discharge: 09/30/18 Date of : 53 Report #: [id number] THIS REPORT FOR: //name// CC: Jorge Hillman [place] DATE OF SERVICE: 09/30/2018 FINAL DISCHARGE DIAGNOSES: 1. Persistent atrial flutter. 2. Hypertension. 3. Exogenous obesity. PROCEDURES: On 09/29/2018, DC cardioversion. HOSPITAL COURSE: The patient is a very pleasant 62-year-old male, who presented with persistent atrial flutter to our office for the duration of this was uncertain. The patient did not respond to a type 1C agent and was placed on Eliquis oral anticoagulation. He noted exercise intolerance, but no sensation of rapid or irregular pulse and there were no symptoms to suggest systemic embolic phenomena. He was admitted on 09/29/2018 and demonstrated atrial flutter with a moderate ventricular response. After loading with sotalol, I proceed with DC cardioversion on 09/29/2018, and the patient reverted after 200 joules administered x 1 with reversion to a sinus mechanism, in which he was maintained. Heart rate drops into the 40s and 50s. I elected to decrease his sotalol from 120 to 80 mg b.i.d., continue Eliquis 5 mg b.i.d. The patient was discharged to home in stable condition on 09/30/2018 with followup with my nurse practitioner on 10/05/2018 and myself in 11/2018. The patient is discharged to home in stable condition on the aforementioned medications with followup as iterated above. <ELECTRONICALLY SIGNED> By: Jorge Da Silva MD, [facility] 10/01/18 1107 1637 1714Jojennifer Da Silva MD, [facility] /nt
== END 2018-09-30 15:25 | disposition home or self-care (01) | DRG 310 ==
LOC: M.2W 10:00
PROVIDERS: ADMIT Internal Medicine
PROC: 5A2204Z Restoration of Cardiac Rhythm, Single (ICD-10-PCS; principal; 2018-09-29)
DX: I48.92 Unspecified atrial flutter (principal); I10 Essential (primary) hypertension; E66.09 Other obesity due to excess calories; I48.91 Unspecified atrial fibrillation; I42.8 Other cardiomyopathies; K08.409 Partial loss of teeth, unspecified cause, unspecified class; Z68.31 Body mass index [BMI] 31.0-31.9, adult; Z87.891 Personal history of nicotine dependence; Z79.899 Other long term (current) drug therapy